=== PATIENT | male | born 1995 | race Caucasian/White ===

== ENCOUNTER 2017-10-24 18:06 | Emergency (ER) | payer OTHER ==
[2017-10-24] MEDS ORDERED: LET GEL TOPICAL 1 EA SYR TP ONE (18:32)
[2017-10-24] MEDS ORDERED: TDAP ADULT 0.5 ML INJ (BOOSTRIX) IM ONE (19:10)
[2017-10-24] MEDS ORDERED: KETOROLAC 30 MG/1 ML SDV IM ONE (19:37)
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
[2017-10-24 20:43] VITALS: BP 116/58; PULSE 68; RESP 16; TEMP 98.1; O2SAT 96
== END 2017-10-24 20:41 | disposition home or self-care (01) ==
LOC: CED 18:06
PROC: 0HQ1XZZ Repair Face Skin, External Approach (ICD-10-PCS; principal; 2017-10-24)
DX: S52.022A Displaced fracture of olecranon process without intraarticular extension of left ulna, initial encounter for closed fracture (principal); S01.81XA Laceration without foreign body of other part of head, initial encounter; Z23 Encounter for immunization; V18.0XXA Pedal cycle driver injured in noncollision transport accident in nontraffic accident, initial encounter; Y92.410 Unspecified street and highway as the place of occurrence of the external cause; Y99.8 Other external cause status; Y93.55 Activity, bike riding
CPT/HCPCS: 73080-PO; J1885